=== PATIENT | female | born 1935 | race Caucasian/White ===

== ENCOUNTER 2019-12-19 16:50 | Inpatient (IN) ==
[2019-12-19 18:17] LABS: POC Blood Urea Nitrogen 63 mg/dl (8-23); POC CO2 21 mmol/L (22-30); POC Calcium, Ionized 1.21 mmol/L (1.16-1.32); POC Chloride 108 mmol/L (96-108); POC Creatinine 4.6 mg/dl (0.6-1.1); POC Glucose, Random 91 mg/dL (70-105); POC Potassium 5.5 mmol/L (3.3-5.1); POC Sodium 137 mmol/L (133-145)
[2019-12-19 18:41] LABS: Basophils # (Auto) 0.07 K/mcL (0.00-0.30); Basophils % (Auto) 0.3 % (0.0-2.0); Eosinophils % (Auto) 0.5 % (0.0-7.0); Granulocytes % (Auto) 81.4 % (38.0-78.0); Hemoglobin 11.4 g/dL (11.2-15.7); Lymphocytes % (Auto) 10.4 % (15.5-49.0); Mean Cell Volume 97.6 fL (80.0-100.0); Mean Corpuscular HGB Conc 31.7 g/dL (31.0-36.0); Mean Platelet Volume 10.2 fL (7.4-10.4); Monocytes # (Auto) 1.49 K/mcL (0.10-0.90); Monocytes % (Auto) 7.4 % (1.0-12.0); Platelet Count 477 K/mcL (140-440); RBC 3.69 M/mcL (3.59-5.38); Red Cell Distribution Width 14.2 % (11.5-14.5); WBC 20.2 K/mcL (4.50-11.00)
[2019-12-19 18:59] LABS: ALT/SGPT 15 U/l (0-40); AST/SGOT 14 U/l (0-37); Albumin 3.4 gm/dL (3.2-5.2); Alkaline Phosphatase 75 U/L (39-117); Bilirubin,Total 0.2 mg/dL (0.0-1.0); Blood Urea Nitrogen 67 mg/dl (8-23); Calcium 9.8 mg/dl (8.6-10.4); Carbon Dioxide 20 mmol/L (22-30); Chloride 101 mmol/L (96-108); Globulin 3.4 gm/dL (2.2-3.7); Glomerular Filtration Rate 8; Glucose 96 mg/dL (70-105)
--- NOTE | 2019-12-19 19:07 | Ultrasound Report ---
INDICATION: elevated creatinine TECHNIQUE: Grayscale and color flow Doppler spectral imaging COMPARISON: Previous examination dated 02/01/2015 FINDINGS: Previous right nephrectomy. Left kidney measures 13.4 x 6.6 x 3.8 cm. No solid left renal mass. There is a left upper pole cyst which measures 2.9 cm. There is mild left hydronephrosis. Left renal cortex is slightly echogenic consistent with medical renal disease. Bladder volume measures 79 mL. Left ureteral jet is not identified. IMPRESSION: 1. Previous right nephrectomy 2. Mild left hydronephrosis. Slightly echogenic left renal cortex consistent with medical renal disease. Interpreted and Authenticated by: Jose Antonio Proctor 12/19/19
[2019-12-19] MEDS ORDERED: 0.9 % SODIUM CHLORIDE 1,000 ML IV ONE (19:10)
--- NOTE | 2019-12-19 19:12 | Emergency Department Note ---
HPI General Chief complaint: Recheck/Abnormal Lab/Rx Stated complaint: recheck labs Time Seen by Provider: 12/19/19 17:02 Source: patient Mode of arrival: ambulatory Limitations: no limitations History of Present Illness HPI Narrative: Narrative: 84-year-old female presents stating that her doctor's office told her to come here due to critical lab values. States she is not sure what they were but they have been monitoring her kidney function. States she does have kidney disease and they have told her at some point soon she is going to need dialysis. States she had routine labs drawn today to monitor her kidney function and they called her couple hours later and told her to come to the ER immediately. States she does not understand it because she feels fine. She has no abdominal pain or back pain. No pain anywhere. No fever or chills. No nausea, vomiting, or diarrhea. No cough or cold symptoms. States she feels great. States she does only have 1 kidney on the left. No difficulty urinating and states actually she has been urinating a lot. No dysuria or frequency. Related Data Home Medications Medication Instructions Recorded Confirmed lovastatin 20 mg PO HS 01/30/15 12/19/19 magnesium 250 mg PO DAILY 01/30/15 12/19/19 calcitriol 0.25 mcg capsule 0.25 mcg PO Q OTHER DAY cap 05/12/19 12/19/19 losartan 100 mg tablet 100 mg PO QDAY #90 tab 05/12/19 12/19/19 Previous Rx's Medication Instructions Recorded atenolol 25 mg tablet See Rx Instructions .ROUTE 06/21/19 .COMPLEX #30 tab levothyroxine 88 mcg capsule 88 mcg PO QDAY #90 cap 09/21/19 amlodipine 5 mg tablet 7.5 mg PO QDAY #56 tab 12/05/19 Allergies Allergy/AdvReac Type Severity Reaction Status Date / Time No Known Drug Allergies Allergy Verified 12/19/19 16:53 Review of Systems ROS ROS Narrative: Narrative: All systems ED: reviewed and negative except as stated. PFSH Narrative Patient History Narrative: Narrative: Medical/Surgical/Family History All Active Problems (Updated 12/19/19 @ 20:19 by ROLAN Diaz) Acute on chronic kidney failure (Acute) Elevated WBC count (Acute) Chronic kidney disease (CKD) stage G4/A3, severely decreased glomerular filtration rate (GFR) between 15-29 mL/min/1.73 square meter and albuminuria creatinine ratio greater than 300 mg/g (Chronic) Elevated C-reactive protein (CRP) (Chronic) Nondependent tobacco use disorder (Chronic) Vitamin D deficiency, unspecified (Chronic) Essential hypertension (Chronic) Hyperparathyroidism due to renal insufficiency (Chronic) Secondary hyperparathyroidism of renal origin (Chronic) Hypertensive renal disease (Chronic) Chronic kidney disease, stage IV (severe) (Chronic) Long-term current use of steroids (Chronic) Chronic Kidney Disease (Chronic) Cystocele (Chronic) History of cholecystectomy (Chronic) History of hysterectomy (Chronic) S/p nephrectomy (Chronic) Elevated erythrocyte sedimentation rate (Chronic) Tobacco abuse (Chronic) Migraines (Chronic) Retroperitoneal infection (Chronic) Osteopenia (Chronic) Hyperlipidemia (Chronic) Hypothyroidism (Chronic) Hypertensive crisis (Chronic) Hypertensive urgency (Chronic) Chronic kidney disease, stage III (moderate) (Chronic) Medical History Chronic Kidney Disease (Chronic) Chronic kidney disease, stage III (moderate) (Chronic) Her GFR is stable and is reduced primarily from the loss of renal masses she has no right kidney. She has a bland urinalysis and her blood pressure is acceptably controlled running systolics around 140 Chronic kidney disease, stage IV (severe) (Chronic) Cystocele (Chronic) Elevated C-reactive protein (CRP) (Chronic) Elevated erythrocyte sedimentation rate (Chronic) Essential hypertension (Chronic) Unspecified, requiring 4 rx for control Giant cell arteritis (Suspected) Hyperlipidemia (Chronic) Hyperparathyroidism due to renal insufficiency (Chronic) On clacitriol Hypertensive crisis (Chronic) Hypertensive renal disease (Chronic) BP at goal, pt is bradycardic ct amlodipine cut back on atenolol to 25mg po daily stop by in a week for BP check imp to follow low sodium diet cut back on smoking work on weight loss Hypertensive urgency (Chronic) Hypothyroidism (Chronic) Long-term current use of steroids (Chronic) Migraines (Chronic) Nondependent tobacco use disorder (Chronic) Osteopenia (Chronic) 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 hyperparathyroidism of renal origin (Chronic) PTH elevated to 184 down from 227 calcium is at 10, vitamin d is 51 will monitor, given calcium level will hold off on calcitriol and start at very low dose if no further hypercalcemia will also reduce fosamax to 35mg po daily given her current renal function Tobacco abuse (Chronic) Vitamin D deficiency, unspecified (Chronic) Surgical History History of cholecystectomy (Chronic) History of hysterectomy (Chronic) History of right nephrectomy (Chronic ~1994) Social History Smoking Status: Current every day smoker Alcohol Intake Frequency: does not drink Substance Use: does not use Exam Narrative Narrative: Narrative: General Limitations: no limitations General appearance: alert and in no apparent distress Head Head: atraumatic and normocephalic Eye Eye: Present normal appearance; Absent conjunctival injection ENT ENT: Present normal exam, normal oropharynx, mucous membranes moist, TM's normal bilaterally and normal external ear exam Neck Neck: Present normal inspection and trachea midline Chest Chest: Present normal inspection and symmetric chest wall rise Respiratory Respiratory: Present normal lung sounds bilaterally; Absent respiratory distress, rales/crackles, wheezes and stridor Cardiovascular Cardiovascular: Present regular rate and normal rhythm Adbominal Abdominal: Present soft; Absent distention and tenderness Back Back: Absent CVA tenderness (R) and CVA tenderness (L) Neurological Neurological: Present alert and oriented X3 Psychiatric Psychiatric: Present normal affect and normal mood Skin Skin: Present warm, dry, intact and normal color Course Vital Signs Vital signs: Vital Signs Temperature 97.7 F 12/19/19 16:50 Pulse Rate 63 12/19/19 16:50 Respiratory Rate 18 12/19/19 16:50 Blood Pressure 108/75 12/19/19 16:50 Pulse Oximetry (%) 96 12/19/19 16:50 Temperature 97.7 F 12/19/19 16:50 Pulse Rate 63 12/19/19 16:50 Respiratory Rate 18 12/19/19 16:50 Blood Pressure 108/75 12/19/19 16:50 Pulse Oximetry (%) 96 12/19/19 16:50 [facility] MDM Narrative Medical decision making narrative: Narrative: Labs received from [facility] today show a creatinine of 4.6. Baseline she is normally 2.0-2.2. This is a significant change in her creatinine. Repeat labs here today show a creatinine of 4.9. She also has an elevated white blood cell count of 20. At 1920 I do have a call into Dr. Alexis who is on for nephrology. At 1999, Dr. Alexis agrees to accept this patient for consult. She would like the hospitalist to admit. At 2014, Dr. Bell, hospitalist agrees accept this patient. Lab Data Lab results reviewed: Yes I reviewed the patient's lab results. Result diagrams: 12/19/19 18:08 12/19/19 18:08 Labs: Lab Results 12/19/19 12/19/19 Range/Units 18:08 18:08 WBC 20.2 H (4.50-11.00) K/mcL RBC 3.69 (3.59-5.38) M/mcL Hgb 11.4 (11.2-15.7) g/dL Hct 36.0 (34.1-44.9) % POC Hct 35.0 L (36.0-48.0) % MCV 97.6 (80.0-100.0) fL MCH 30.9 (26.0-34.0) pg MCHC 31.7 (31.0-36.0) g/dL RDW 14.2 (11.5-14.5) % Plt Count 477 H (140-440) K/mcL MPV 10.2 (7.4-10.4) fL Gran % 81.4 H (38.0-78.0) % Lymph % (Auto) 10.4 L (15.5-49.0) % Island % (Auto) 7.4 (1.0-12.0) % Eos % (Auto) 0.5 (0.0-7.0) % Baso % (Auto) 0.3 (0.0-2.0) % Gran # 16.47 H (1.80-8.00) K/mcL Lymph # (Auto) 2.10 (1.50-4.80) K/mcL Island # (Auto) 1.49 H (0.10-0.90) K/mcL Eos # (Auto) 0.10 (0.00-0.70) K/mcL Baso # (Auto) 0.07 (0.00-0.30) K/mcL POC Sodium 137 (133-145) mmol/L Sodium 137 (133-145) mmol/L POC Potassium 5.5 H (3.3-5.1) mmol/L Potassium 5.5 H (3.3-5.1) mmol/L POC Chloride 108 (96-108) mmol/L Chloride 101 (96-108) mmol/L Carbon Dioxide 20 L (22-30) mmol/L POC Total CO2 21 L (22-30) mmol/L Anion Gap 16.0 (8-16) POC BUN 63 H (8-23) mg/dl BUN 67 H (8-23) mg/dl Creatinine 4.9 H (0.6-1.1) mg/dl POC Creatinine 4.6 H (0.6-1.1) mg/dl GFR Calculation 8 Glucose 96 (70-105) mg/dL POC Glucose 91 (70-105) mg/dL Calcium 9.8 (8.6-10.4) mg/dl POC WB Ioniz Calcium 1.21 (1.16-1.32) mmol/L Total Bilirubin 0.2 (0.0-1.0) mg/dL AST 14 (0-37) U/l ALT 15 (0-40) U/l Alkaline Phosphatase 75 (39-117) U/L Total Protein 6.8 (5.9-8.4) gm/dL Albumin 3.4 (3.2-5.2) gm/dL Globulin 3.4 (2.2-3.7) gm/dL Albumin/Globulin Ratio 1.0 (1.0-2.3) Radiology Data Radiology results reviewed: Yes I reviewed the patient's radiology results. Discharge Plan Patient/Caregiver Discharge Instructions Pt seen by MORTGAGE ACCOUNTING CLERK/PA only: Yes Clinical Impression: Chronic kidney disease (CKD) stage G4/A3, severely decreased glomerular filtration rate (GFR) between 15-29 mL/min/1.73 square meter and albuminuria creatinine ratio greater than 300 mg/g, Acute on chronic kidney failure, Elevated WBC count Patient Disposition: Xfer As Outpt/Obs ([facility]) Condition: Fair Follow up with: Joel Ortega DO [Primary Care Provider] - Mallory Bonilla MD [Physician] - Prescriptions: No Action atenolol 25 mg tablet See Rx Instructions .ROUTE .COMPLEX Qty: 30 RF: 6 amlodipine 5 mg tablet 7.5 mg PO QDAY Qty: 56 RF: 4 losartan 100 mg tablet 100 mg PO QDAY Qty: 90 RF: 0 calcitriol 0.25 mcg capsule 0.25 mcg PO Q OTHER DAY RF: 0 levothyroxine 88 mcg capsule 88 mcg PO QDAY Qty: 90 RF: 0 magnesium 250 MG tablet 250 mg PO DAILY RF: 0 lovastatin 20 MG tablet 20 mg PO HS RF: 0
--- NOTE | 2019-12-19 20:22 | XRay Report ---
INDICATION: wbc 20, weakness TECHNIQUE: AP portable upright chest x-ray COMPARISON: Previous chest x-rays dated 01/30/2015, 11/11/2011 FINDINGS: Lungs:Linear density at the right lung base consistent with chronic scarring. No acute parenchymal infiltrate or mass Heart, vascular:No significant cardiomegaly. Pulmonary vascularity is normal. No pulmonary edema or pulmonary congestion Mediastinum, klaudia:No mediastinal widening. No hilar mass Pleura:No pleural fluid. No pleural-based mass or calcification Skeletal:Negative. IMPRESSION: 1. Right basilar parenchymal density consistent with scarring 2. No acute abnormality or interval change Interpreted and Authenticated by: Jose Antonio Proctor 12/19/19
[2019-12-19] MEDS ORDERED: SIMVASTATIN 10 MG TABLET PO SCH (21:00)
[2019-12-19] MEDS ORDERED: LOVASTATIN 20 MG TABLET PO SCH (21:30)
--- NOTE | 2019-12-19 21:38 | Internal Med History&Physical ---
HPI History of Present Illness Patient information: Note initiated : 12/19/19 at 9:23 pm Service Date, if different from initiated Date: [] Patient: Justine Malone a 84 y/o F admitted on for recheck labs. Chief Complaint: Abnormal labs History of present illness: Ms. Malone is a 84 year old F with a history of hypertension, chronic kidney disease with single kidney, hypothyroidism, hyperlipidemia who was called in after routine labs drawn for an upcoming nephrology clinic visit revealed significantly worsened creatinine, hyperkalemia as well as leukocytosis. The patient's creatinine this year is run in the 2.02.2 range. Here in the ED, her creatinine is 4.9. In addition her white count earlier today was 16,000, and is now 20,000. The patient states that she feels well. She has had a normal appetite, is maintaining hydration. She has seen a dietitian is attempting to alter her diet to help prevent worsening of her renal function, but is still maintaining good fluid intake. She does note over the last week that she has felt thirstier than usual and has increased her water intake. She has had no nausea or vomiting, no diarrhea. She is still producing urine without dysuria. She has had no frequency. Noted no hematuria. She has had no change in her medications. She does take losartan as part of her usual antihypertensive regimen. She has not taken any nonsteroidals, the only medication she is taken for pain has been acetaminophen in the last few weeks. She does not usually take her blood pressure, though it is generally controlled in the [id number] systolic range. She has not taken any [id number] supplements or herbal preparations. She has not done any "cleanses". She denies any fevers, chills or shaking chills. She has had no cough or sputum production. Noted no rashes. No joint swelling or erythema. She has had no sinus pressure, no sore throat. She has chronic mild rhinitis which is unchanged. No vision changes. She has had no chest pain or tightness or squeezing. No lower extremity edema or orthopnea. She sleeps on 1 pillow which is unchanged. No bleeding or bruising. Patient is being admitted for further evaluation of acute on chronic renal failure as well as leukocytosis. Review of Systems All systems: reviewed and no additional remarkable complaints except as stated PFSH PFSH All Active Problems (Updated 12/19/19 @ 21:35 by Elizabeth Dao MD) Acute on chronic kidney failure (Acute) Elevated WBC count (Acute) Chronic kidney disease (CKD) stage G4/A3, severely decreased glomerular filtration rate (GFR) between 15-29 mL/min/1.73 square meter and albuminuria creatinine ratio greater than 300 mg/g (Chronic) Elevated C-reactive protein (CRP) (Chronic) Nondependent tobacco use disorder (Chronic) Vitamin D deficiency, unspecified (Chronic) Essential hypertension (Chronic) Hyperparathyroidism due to renal insufficiency (Chronic) Secondary hyperparathyroidism of renal origin (Chronic) Hypertensive renal disease (Chronic) Chronic kidney disease, stage IV (severe) (Chronic) Long-term current use of steroids (Chronic) Chronic Kidney Disease (Chronic) Cystocele (Chronic) History of cholecystectomy (Chronic) History of hysterectomy (Chronic) S/p nephrectomy (Chronic) Elevated erythrocyte sedimentation rate (Chronic) Tobacco abuse (Chronic) Migraines (Chronic) Retroperitoneal infection (Chronic) Osteopenia (Chronic) Hyperlipidemia (Chronic) Hypothyroidism (Chronic) Hypertensive crisis (Chronic) Hypertensive urgency (Chronic) Chronic kidney disease, stage III (moderate) (Chronic) Medical History Chronic Kidney Disease (Chronic) Chronic kidney disease, stage III (moderate) (Chronic) Her GFR is stable and is reduced primarily from the loss of renal masses she has no right kidney. She has a bland urinalysis and her blood pressure is acceptably controlled running systolics around 140 Chronic kidney disease, stage IV (severe) (Chronic) Cystocele (Chronic) Elevated C-reactive protein (CRP) (Chronic) Elevated erythrocyte sedimentation rate (Chronic) Essential hypertension (Chronic) Unspecified, requiring 4 rx for control Giant cell arteritis (Suspected) Hyperlipidemia (Chronic) Hyperparathyroidism due to renal insufficiency (Chronic) On clacitriol Hypertensive crisis (Chronic) Hypertensive renal disease (Chronic) BP at goal, pt is bradycardic ct amlodipine cut back on atenolol to 25mg po daily stop by in a week for BP check imp to follow low sodium diet cut back on smoking work on weight loss Hypertensive urgency (Chronic) Hypothyroidism (Chronic) Long-term current use of steroids (Chronic) Migraines (Chronic) Nondependent tobacco use disorder (Chronic) Osteopenia (Chronic) 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 hyperparathyroidism of renal origin (Chronic) PTH elevated to 184 down from 227 calcium is at 10, vitamin d is 51 will monitor, given calcium level will hold off on calcitriol and start at very low dose if no further hypercalcemia will also reduce fosamax to 35mg po daily given her current renal function Tobacco abuse (Chronic) Vitamin D deficiency, unspecified (Chronic) Surgical History History of cholecystectomy (Chronic) History of hysterectomy (Chronic) History of right nephrectomy (Chronic ~1994) Family History (Updated 12/19/19 @ 21:31 by Elizabeth Dao MD) Son Hypertension Social History (Updated 09/22/19 @ 17:01 by Mallory Bonilla MD) household members: alone housing: house lives independently: Yes marital status: single pets and animals: Yes pets and animals: dog(s) smoking status: Current every day smoker tobacco type: cigarettes alcohol intake frequency: does not drink substance use type: does not use MEDS/ALLERGIES Home Medications and Allergies Home Medications Medication Instructions Recorded Confirmed Type lovastatin 20 mg PO HS 01/30/15 12/19/19 History magnesium 250 mg PO DAILY 01/30/15 12/19/19 History calcitriol 0.25 mcg capsule 0.25 mcg PO Q OTHER DAY cap 05/12/19 12/19/19 History losartan 100 mg tablet 100 mg PO QDAY #90 tab 05/12/19 12/19/19 History atenolol 25 mg tablet See Rx Instructions .ROUTE 06/21/19 12/19/19 Rx .COMPLEX #30 tab levothyroxine 88 mcg capsule 88 mcg PO QDAY #90 cap 09/21/19 12/19/19 Rx amlodipine 5 mg tablet 7.5 mg PO QDAY #56 tab 12/05/19 12/19/19 Rx Allergies Allergy/AdvReac Type Severity Reaction Status Date / Time No Known Drug Allergies Allergy Verified 12/19/19 16:53 EXAM Constitutional Vitals: Temp Pulse Resp BP Pulse Ox 97.7 F 60 18 143/75 96 12/19/19 16:50 12/19/19 21:08 12/19/19 16:50 12/19/19 21:08 12/19/19 21:08 GENERAL: Alert, oriented, in no acute distress. Cooperative, appears stated age. HEENT: Atraumatic. PERRL, conjunctiva clear, no scleral icterus. Hearing grossly intact. Oropharynx with moist mucous membranes, tongue midline, palate rises symmetrically. NECK: Supple without meningismus, no thyromegaly appreciated though exam is difficult RESPIRATORY: Coarse crackles in the right base, unchanged with deep respir ations. Otherwise no rales, respirations are unlabored. No wheezing, no rhonchi. CARDIOVASCULAR: Regular rate and rhythm, no murmur gallop or rub. No peripheral edema. Carotid pulses 2+ without bruit. Dorsalis pedis pulses 2+. GI: Abdomen obese, soft, nontender, no guarding or rebound. Bowel sounds are present. MUSCULOSKELETAL: No joint erythema or swelling, normal range of motion in all extremities. SKIN: Intact, warm, dry. Multiple actinic keratoses on the back. Skin turgor normal. NEUROLOGIC: Cranial nerves II through XII grossly intact. Muscle mass normal for age. Strength 5/5 in the upper and lower extremities. Sensation intact to light touch bilaterally. PSYCHIATRIC: Alert, oriented x3, normal mood and affect, normal insight. DATA Data Completed and Pending Labs on day of discharge: Labs from last 24 hours 12/19/19 12/19/19 12/19/19 20:42 20:05 18:08 WBC RBC Hgb Hct POC Hct 35.0 L MCV MCH MCHC RDW Plt Count MPV Gran % Lymph % (Auto) Dare % (Auto) Eos % (Auto) Baso % (Auto) Gran # Lymph # (Auto) Dare # (Auto) Eos # (Auto) Baso # (Auto) VBG Lactic Acid 0.8 POC Sodium 137 Sodium 137 POC Potassium 5.5 H Potassium 5.5 H POC Chloride 108 Chloride 101 Carbon Dioxide 20 L POC Total CO2 21 L Anion Gap 16.0 POC BUN 63 H BUN 67 H Creatinine 4.9 H POC Creatinine 4.6 H GFR Calculation 8 Glucose 96 POC Glucose 91 Calcium 9.8 POC WB Ioniz Calcium 1.21 Total Bilirubin 0.2 AST 14 ALT 15 Alkaline Phosphatase 75 Total Protein 6.8 Albumin 3.4 Globulin 3.4 Albumin/Globulin Ratio 1.0 Urine Color Pending Urine Appearance Pending Urine pH Pending Ur Specific [place] Pending Urine Protein Pending Urine Glucose (UA) Pending Urine Ketones Pending Urine Occult Blood Pending Urine Nitrate Pending Urine Bilirubin Pending Urine Urobilinogen Pending Ur Leukocyte Esterase Pending 12/19/19 18:08 WBC 20.2 H RBC 3.69 Hgb 11.4 Hct 36.0 POC Hct MCV 97.6 MCH 30.9 MCHC 31.7 RDW 14.2 Plt Count 477 H MPV 10.2 Gran % 81.4 H Lymph % (Auto) 10.4 L Dare % (Auto) 7.4 Eos % (Auto) 0.5 Baso % (Auto) 0.3 Gran # 16.47 H Lymph # (Auto) 2.10 Dare # (Auto) 1.49 H Eos # (Auto) 0.10 Baso # (Auto) 0.07 VBG Lactic Acid POC Sodium Sodium POC Potassium Potassium POC Chloride Chloride Carbon Dioxide POC Total CO2 Anion Gap POC BUN BUN Creatinine POC Creatinine GFR Calculation Glucose POC Glucose Calcium POC WB Ioniz Calcium Total Bilirubin AST ALT Alkaline Phosphatase Total Protein Albumin Globulin Albumin/Globulin Ratio Urine Color Urine Appearance Urine pH Ur Specific [place] Urine Protein Urine Glucose (UA) Urine Ketones Urine Occult Blood Urine Nitrate Urine Bilirubin Urine Urobilinogen Ur Leukocyte Esterase Impressions Impressions: EKG: Sinus rhythm. Normal intervals. Imaging and Cardiology Chest x-ray: Status: image reviewed by me Additional comments: No pulmonary edema, right basilar scarring. A/P Assessment and plan (1) Acute on chronic kidney failure: Status: Acute (2) Elevated WBC count: Status: Acute (3) Chronic kidney disease (CKD) stage G4/A3, severely decreased glomerular filtration rate (GFR) between 15-29 mL/min/1.73 square meter and albuminuria creatinine ratio greater than 300 mg/g: Status: Chronic (4) Essential hypertension: Status: Chronic Comment: Unspecified, requiring 4 rx for control (5) Hyperparathyroidism due to renal insufficiency: Status: Chronic Comment: On clacitriol Narrative A/P Narrative: 84-year-old female with chronic kidney disease presenting with acute on chronic renal failure associated with hyperkalemia. Also found to have leukocytosis. Acute on chronic renal failure. Creatinine running at baseline in the 2.02.2 range. Is now 4.9. Unclear etiology. Ultrasound of the kidneys reveal evidence of medical renal disease, mild hydro-but no obstruction, no inflammatory stranding. Patient does not provide history of volume loss without nausea or vomiting, is maintaining good oral intake. Has not been out in the heat for prolonged periods of time. She does not take diuretics. No nonsteroidal use. She is chronically on losartan which is unchanged, but could have contributed. She has not checked her blood pressure at home, but no other symptoms of hypertensive urgency and she is generally controlled in the 140-150 mmHg systolic range. Given her leukocytosis, sepsis also a concern is because of renal failure, however history and physical exam is generally unrevealing; urine analysis shows pyuria but no bacteriuria, culture has been sent. She is nonoliguric, continuing to make urine. Plan: Inpatient admission Hydrate Follow urine output Follow renal function Nephrology consultation (called from the ED), case discussed with Dr. Bonilla on the phone Follow-up urine culture, begin antibiotics with ceftriaxone Check spot urine sodium and creatinine/fractional excretion of sodium Hyperkalemia. Mild, likely on the basis of renal insufficiency. No concerning EKG changes. Follow electrolytes with hydration Leukocytosis. White count was 16,000 this afternoon, 20,000 this evening. No focal source on physical exam, no concerning symptoms on history. Mostly granulocytes, manual differential apparently showed bands, no mention of blasts or other immature lineages. Concerning for possible infection. As noted, no apparent source. Urine analysis shows pyuria without squamous cells, but no bacteriuria on microscopy, does not seem to be a significant infection that would explain such a leukocytosis. Follow-up urine culture Begin antibiotics as above Follow-up blood cultures obtained in the ED Check procalcitonin Hypertension. On losartan, atenolol and amlodipine as an outpatient. By her report, systolics generally run in the 140-150 mmHg range. Continue amlodipine and atenolol Hold losartan given renal failure Hypothyroidism. On levothyroxine. Check TSH Hyperlipidemia. On lovastatin. Continue Prophylaxis: Subcutaneous unfractionated heparin CODE STATUS discussed with patient and her daughter: Full code
[2019-12-19 21:42] LABS: Appearance,Urine CLEAR; Bacteria,Urine 0 /hpf (0); Bilirubin,Urine NEG (NEG); Color,Urine STRAW; Culture Indicated,Urine YES; Glucose,Urine (UA) NEGATIVE (NEG); Ketones,Urine NEG (NEG); Leukocyte Esterase,Urine 75 /uL (NEG); Mucus,Urine FEW /hpf (0); Nitrate,Urine NEG (NEG); Protein,Urine 100 mg/dL (NEG); Specific Gravity,Urine 1.011 (1.000-1.035); Urine Blood 0.03 mg/dL (<0.03); Urine RBC 2 /hpf (0-1); Urine Squamous Epithelial Cell < 1 /hpf (0-4); Urine WBC 37 /hpf (0-4); Urobilinogen,Urine NEG (NEG)
--- NOTE | 2019-12-19 21:53 | Nephrology Consult Note ---
HPI Data of Consult Consult date: 12/20/19 Primary Care Provider: Joel Ortega Consult Narrative Reason for consult: Decreased renal function History of present illness: 84-year-old female with CKD stage IV, solitary kidney, hypothyroidism, HTN, dyslipidemia, sent to the ED for evaluation of decreased renal function after routine blood work. She was asymptomatic. She received IV fluids overnight, and continues to deny: Nausea, vomiting, changes in appetite, pruritus, edema, hiccups etc. denies recent NSAID use. Says she stayed better hydrated cc:: CC: Review of Systems Review of systems: 10 point review of system negative PFSH PFSH All Active Problems Acute on chronic kidney failure (Acute) Elevated WBC count (Acute) Chronic kidney disease (CKD) stage G4/A3, severely decreased glomerular fi ltration rate (GFR) between 15-29 mL/min/1.73 square meter and albuminuria creatinine ratio greater than 300 mg/g (Chronic) Elevated C-reactive protein (CRP) (Chronic) Nondependent tobacco use disorder (Chronic) Vitamin D deficiency, unspecified (Chronic) Essential hypertension (Chronic) Hyperparathyroidism due to renal insufficiency (Chronic) Secondary hyperparathyroidism of renal origin (Chronic) Hypertensive renal disease (Chronic) Chronic kidney disease, stage IV (severe) (Chronic) Long-term current use of steroids (Chronic) Chronic Kidney Disease (Chronic) Cystocele (Chronic) History of cholecystectomy (Chronic) History of hysterectomy (Chronic) S/p nephrectomy (Chronic) Elevated erythrocyte sedimentation rate (Chronic) Tobacco abuse (Chronic) Migraines (Chronic) Retroperitoneal infection (Chronic) Osteopenia (Chronic) Hyperlipidemia (Chronic) Hypothyroidism (Chronic) Hypertensive crisis (Chronic) Hypertensive urgency (Chronic) Chronic kidney disease, stage III (moderate) (Chronic) Medical History Chronic Kidney Disease (Chronic) Chronic kidney disease, stage III (moderate) (Chronic) Her GFR is stable and is reduced primarily from the loss of renal masses she has no right kidney. She has a bland urinalysis and her blood pressure is acceptably controlled running systolics around 140 Chronic kidney disease, stage IV (severe) (Chronic) Cystocele (Chronic) Elevated C-reactive protein (CRP) (Chronic) Elevated erythrocyte sedimentation rate (Chronic) Essential hypertension (Chronic) Unspecified, requiring 4 rx for control Giant cell arteritis (Suspected) Hyperlipidemia (Chronic) Hyperparathyroidism due to renal insufficiency (Chronic) On clacitriol Hypertensive crisis (Chronic) Hypertensive renal disease (Chronic) BP at goal, pt is bradycardic ct amlodipine cut back on atenolol to 25mg po daily stop by in a week for BP check imp to follow low sodium diet cut back on smoking work on weight loss Hypertensive urgency (Chronic) Hypothyroidism (Chronic) Long-term current use of steroids (Chronic) Migraines (Chronic) Nondependent tobacco use disorder (Chronic) Osteopenia (Chronic) 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 hyperparathyroidism of renal origin (Chronic) PTH elevated to 184 down from 227 calcium is at 10, vitamin d is 51 will monitor, given calcium level will hold off on calcitriol and start at ve ry low dose if no further hypercalcemia will also reduce fosamax to 35mg po daily given her current renal function Tobacco abuse (Chronic) Vitamin D deficiency, unspecified (Chronic) Surgical History History of cholecystectomy (Chronic) History of hysterectomy (Chronic) History of right nephrectomy (Chronic ~1994) Family History (Updated 12/19/19 @ 21:31 by Elizabeth Dao MD) Son Hypertension Social History household members: alone housing: house lives independently: Yes marital status: single pets and animals: Yes pets and animals: dog(s) smoking status: Current every day smoker tobacco type: cigarettes alcohol intake frequency: does not drink substance use type: does not use MEDS/ALLERGIES Home Medications and Allergies Home Medications Medication Instructions Recorded Confirmed Type lovastatin 20 mg PO HS 01/30/15 12/19/19 History magnesium 250 mg PO HS 01/30/15 12/19/19 History calcitriol 0.25 mcg capsule 0.25 mcg PO Q OTHER DAY cap 05/12/19 12/19/19 History losartan 100 mg tablet 100 mg PO HS #90 tab 05/12/19 12/19/19 History atenolol 25 mg tablet See Rx Instructions .ROUTE 06/21/19 12/19/19 Rx .COMPLEX #30 tab levothyroxine 88 mcg capsule 88 mcg PO QDAY #90 cap 09/21/19 12/19/19 Rx amlodipine 5 mg tablet 7.5 mg PO QDAY #56 tab 12/05/19 12/19/19 Rx Allergies Allergy/AdvReac Type Severity Reaction Status Date / Time No Known Drug Allergies Allergy Verified 12/19/19 16:53 Physical Examination Vital Signs Vital signs: Temp Pulse Resp BP Pulse Ox 36.5 C 60 18 143/75 96 12/19/19 16:50 12/19/19 21:08 12/19/19 16:50 12/19/19 21:08 12/19/19 21:08 General Appearance Exam Narrative: General elderly lady, no acute distress HEENT head is normocephalic, atraumatic. Eyes nonicteric sclera Respiratory nonlabored respirations, on room air, no adventitious sounds Cardiovascular regular rate and rhythm, no rub, present peripheral pulses Abdomen soft, distended, nontender, present bowel sounds Skin warm and dry Extremities no cyanosis, no edema Neuro alert, oriented, clear speech, moves all extremities Results Lab Results Result Diagrams: 12/20/19 05:10 12/20/19 05:10 Lab results: Most recent lab results Calcium 9.8 mg/dl (8.6-10.4) 12/19/19 18:08 A/P Assessment and plan (1) Acute on chronic kidney failure: Status: Acute (2) Chronic kidney disease (CKD) stage G4/A3, severely decreased glomerular filtration rate (GFR) between 15-29 mL/min/1.73 square meter and albuminuria creatinine ratio greater than 300 mg/g: Status: Chronic (3) Elevated WBC count: Status: Acute Narrative A/P Narrative: per 12/19/2019 review of chart JOSELO on CKD vs progression of CKD to ESRD no need for emergent dilaysis 12/20/2019 strict I/O; hold losartan. avoid nephrotoxins gentle fluid administration e.g 1ml/kg/hr 12/20/2019am renal function panel. further management based on repeat labs 12/20/2019 assessment and plan She had severe CKD in the setting of solitary kidney, hypertension. Renal function has worsened, she has no uremic symptoms. Has follow-up in renal clinic this week 12/19/2019 UA plus protein, 37 WBC, 2 RBC. UPCR 2.3 05/06/2019. UPCR was 2.6 07/22/2018. UA with microscopy dipstick was positive for blood, positive for protein, 0-2 red blood cells, 0.2 hyaline casts. Prior negative work-up includes REJI, ANCA screen, SSA, SSB, anti-Salmeron, anti- [employer]CROPHONE OPERATOR, anti-scleroderma, double-stranded DNA, normal C3, negative hepatitis B antigen and antibody, nonreactive hepatitis C antibody. Her C3 was minimally decreased 15.3 (16-47) 12/19/2019 renal ultrasound1. Previous right nephrectomy 2. Mild left hydronephrosis. Slightly echogenic left renal cortex consistent with medical renal disease. Renal ultrasound 01/31/2015 read as left kidney 11.2 cm. 1.3 cm cyst. Prior right nephrectomy. Normal left artery no detectable stenosis. labs reviewed with the patient. patient updated with findings and plan, voiced understanding Arrangements will be made for access placement hemodynamics and volume Albumin 2.5. Blood pressure fluctuated from 108/75-171/58. 12/19/2019 chest x-ray1. Right basilar parenchymal density consistent with sc arring 2. No acute abnormality or interval change *Change amlodipine to 5 mg p.o. twice daily. Continue atenolol. hydralazine 25 mg p.o. as needed for SBP over 150 *Monitor blood pressure at home acid-base Bicarbonate 17. *Bicarbonate 325 mg p.o. daily bone-mineral metabolism Calcium 9, magnesium 2.3, phosphorus 4.9. Monitor as below BUN/ K 61/5. *Repeat renal function panel , 12/22/2019 hematologic hemoglobin 9.9. *Iron studies, repeat H&H this week during the renal appointment on CLINICAL EXERCISE PHYSIOLOGIST Planning ESRD education: She attended the choices class. Access planning: Arrangements being made with our access director. Schedule vein mapping and vascular surgery consult Time Spent With Patient Time: Total time spent is greater than 50% in coordination of care (as compa gallegos) at patient's floor/unit and/or counseling patient:
[2019-12-19] MEDS ORDERED: ACETAMINOPHEN 325 MG TABLET PO PRN (21:56)
[2019-12-19] MEDS ORDERED: LACTULOSE 20 GM/30 ML ORAL.SOL PO PRN (21:56)
[2019-12-19] MEDS ORDERED: SENNOSIDES 1 TABLET PO PRN (21:56)
[2019-12-19] MEDS ORDERED: ONDANSETRON 4 MG/2 ML VIAL IV PRN (21:56)
[2019-12-19] MEDS: 0.9 % SODIUM CHLORIDE 1,000 ML IV SCH (22:33)
[2019-12-19] MEDS: 0.9 % SODIUM CHLORIDE 10 ML SYRINGE IV SCH (22:34)
[2019-12-19 22:36] LABS: Creatinine,Urine Random 58.3 mg/dl
[2019-12-20] MEDS: 0.9 % SODIUM CHLORIDE 10 ML SYRINGE IV SCH ×2 (05:24→15:13)
[2019-12-20 05:59] LABS: Hematocrit 32.7 % (34.1-44.9); Hemoglobin 9.9 g/dL (11.2-15.7); Mean Cell Volume 100.3 fL (80.0-100.0); Mean Corpuscular HGB Conc 30.3 g/dL (31.0-36.0); Mean Platelet Volume 10.1 fL (7.4-10.4); Platelet Count 448 K/mcL (140-440); RBC 3.26 M/mcL (3.59-5.38); Red Cell Distribution Width 14.4 % (11.5-14.5); WBC 15.3 K/mcL (4.50-11.00)
[2019-12-20 06:50] LABS: ALT/SGPT 13 U/l (0-40); AST/SGOT 12 U/l (0-37); Albumin 2.5 gm/dL (3.2-5.2); Albumin/Globulin Ratio 0.8 (1.0-2.3); Alkaline Phosphatase 58 U/L (39-117); Bilirubin,Direct < 0.2 mg/dL (0.0-0.3); Bilirubin,Total 0.2 mg/dL (0.0-1.0); Blood Urea Nitrogen 61 mg/dl (8-23); Carbon Dioxide 17 mmol/L (22-30); Globulin 3.1 gm/dL (2.2-3.7); Glomerular Filtration Rate 8; Glucose 109 mg/dL (70-105); Lactate Dehydrogenase 133 U/L (94-250); Phosphorous 4.9 mg/dL (2.7-4.5); Triglycerides 92 mg/dl (<150); Uric Acid 9.4 mg/dL (2.5-8.0)
[2019-12-20 06:51] LABS: Chloride 109 mmol/L (96-108)
[2019-12-20] MEDS ORDERED: LEVOTHYROXINE 88 MCG TABLET PO SCH ×2 (07:30)
[2019-12-20] MEDS: 0.9 % SODIUM CHLORIDE 1,000 ML IV SCH (08:56)
[2019-12-20] MEDS ORDERED: cefTRIAXone 1 GM VIAL IV SCH (09:00)
[2019-12-20] MEDS ORDERED: HEPARIN 5,000 UNIT/ML VIAL SQ SCH (09:00)
[2019-12-20] MEDS ORDERED: DOCUSATE SODIUM 100 MG CAPSULE PO SCH (09:00)
[2019-12-20] MEDS ORDERED: ATENOLOL 25 MG TABLET PO SCH ×2 (09:00)
[2019-12-20] MEDS ORDERED: amLODIPine 5 MG TABLET PO SCH ×2 (09:00)
--- NOTE | 2019-12-20 11:36 | Discharge Summary ---
Discharge Provider Provider Patient information: Note initiated : 12/20/19 at 11:33 am Service Date, if different from initiated Date: [] Patient: Justine Malone 84 y/o F admitted on 12/19/19 for recheck labs. Chief Complaint: Abnormal labs Date of admission: 12/19/19 21:55 Discharge date: 12/20/19 Primary care physician: Joel Ortega Admitting clinician: Elizabeth Dao Consults: 12/19/19 Consult to Physician [CONS] Stat Comment: Consulting Provider: Mallory Bonilla Reason For Exam: Physician to Consult Consult to Physician [CONS] Stat Comment: Consulting Provider: Elizabeth Dao Reason For Exam: Physician to Consult Discharging clinician: Elizabeth Dao Discharge Meds Discharge Medications Home Medications lovastatin 20 mg PO HS 01/30/15 [History Confirmed 12/19/19 Last Taken 12/18/19] magnesium 250 mg PO HS 01/30/15 [History Confirmed 12/19/19 Last Taken 12/18/19] calcitriol 0.25 mcg capsule 0.25 mcg PO Q OTHER DAY cap 05/12/19 [History Confirmed 12/19/19 Last Taken Unknown] atenolol 25 mg tablet See Rx Instructions .ROUTE .COMPLEX #30 tab 06/21/19 [Rx Confirmed 12/19/19 Last Taken 12/18/19] levothyroxine 88 mcg capsule 88 mcg PO QDAY #90 cap 09/21/19 [Rx Confirmed 12/19/19 Last Taken 12/18/19] amlodipine 5 mg PO BID #60 tab 12/20/19 [Rx Last Taken Unknown] hydralazine 25 mg PO QIDP PRN #30 tab 12/20/19 [Rx Last Taken Unknown] sodium bicarbonate 325 mg PO QDAY #30 tab 12/20/19 [Rx Last Taken Unknown] COURSE Hospital Course Hospital course: HPI: Ms. Malone is a 84 year old F with a history of hypertension, chronic kidney disease with single kidney, hypothyroidism, hyperlipidemia who was called in after routine labs drawn for an upcoming nephrology clinic visit revealed significantly worsened creatinine, hyperkalemia as well as leukocytosis. The patient's creatinine this year is run in the 2.02.2 range. Here in the ED, her creatinine is 4.9. In addition her white count earlier today was 16,000, and is now 20,000. The patient states that she feels well. She has had a normal appetite, is maintaining hydration. She has seen a dietitian is attempting to alter her diet to help prevent worsening of her renal function, but is still maintaining good fluid intake. She does note over the last week that she has felt thirstier than usual and has increased her water intake. She has had no nausea or vomiting, no diarrhea. She is still producing urine without dysuria. She has had no frequency. Noted no hematuria. She has had no change in her medications. She does take losartan as part of her usual antihypertensive regimen. She has not taken any nonsteroidals, the only medication she is taken for pain has been acetaminophen in the last few weeks. She does not usually take her blood pressure, though it is generally controlled in the 320361 systolic range. She has not taken any [id number] supplements or herbal preparations. She has not done any "cleanses". Course: Patient was admitted, hydrated overnight. Losartan was held. Following morning her creatinine was 4.6. Her urine analysis revealed pyuria without bact eriuria, though she was started on antibiotics for possible acute cystitis. Her white count decreased to 15,000, though with hydration her hemoglobin fell from 11.6-9.9. She was seen in consultation by Dr. Bonilla, who also follows her in the nephrology clinic. This may represent acute on chronic renal disease versus progression of CKD to ESRD. Recommendations were made for changes to blood pre ssure regimen to exclude losartan, correction of acidosis, and further evaluation of anemia. The patient felt well throughout this time. It was felt that she could now be discharged and continue hydrating at home orally with close clinic follow-up later this week. Her leukocytosis improved. Unclear if this was secondary to acute cystitis. No other source of infection noted. Procalcitonin is normal at 0.67. Blood cultures were without growth by the time of discharge. Urine culture likewise was without growth, though it was less than 24 hours by discharge. The patient was admitted as an inpatient anticipating it would require at least 2 days to stabilize and evaluate her decline in renal function. However she is being discharged in less than 2 midnights as her renal function was st abilized/started to improve and she was stable to continue hydration as an outpatient with close outpatient follow-up. Thus she was discharged after only 1 midnight in the hospital. Discharge diagnosis: Acute kidney injury on CKD 4 versus progression of CKD to ESRD Secondary discharge diagnosis: Hyperkalemia, mild, resolved Rule out urinary tract infection/acute cystitis Hypertension Hypothyroidism Hypercholesterolemia Complications: None Time Spent with Patient Time attestation: Total time spent providing and/or coordinating discharge services: 40 min EXAM Constitutional Vitals: Temp Pulse Resp BP Pulse Ox 98.5 F 56 L 20 145/60 94 12/20/19 11:30 12/20/19 11:30 12/20/19 11:30 12/20/19 11:30 12/20/19 11:30 General: No acute distress Chest: Few rales at right base, unchanged from admission Cardiovascular: Regular, no peripheral edema Abdomen: Soft, nontender Neuro: Alert, oriented x3, ambulatory Discharge Data Data Completed and Pending Labs on day of discharge: Labs from last 24 hours 12/20/19 12/20/19 12/20/19 05:10 05:10 05:10 WBC 15.3 H RBC 3.26 L Hgb 9.9 L Hct 32.7 L POC Hct MCV 100.3 H MCH 30.4 MCHC 30.3 L RDW 14.4 Plt Count 448 H MPV 10.1 Gran % Lymph % (Auto) [place] % (Auto) Eos % (Auto) Baso % (Auto) Gran # Lymph # (Auto) [place] # (Auto) Eos # (Auto) Baso # (Auto) Total Counted Pending Band Neutrophils % Not Reportable Platelet Estimate Pending RBC Morphology Pending VBG Lactic Acid POC Sodium Sodium 141 POC Potassium Potassium 5.0 POC Chloride Chloride 109 H Carbon Dioxide 17 L POC Total CO2 Anion Gap 15.0 POC BUN BUN 61 H Creatinine 4.6 H POC Creatinine GFR Calculation 8 Glucose 109 H POC Glucose Uric Acid 9.4 H Calcium 9.0 POC WB Ioniz Calcium Phosphorus 4.9 H Magnesium 2.3 Total Bilirubin 0.2 Direct Bilirubin < 0.2 GGT 17 AST 12 ALT 13 Alkaline Phosphatase 58 Lactate Dehydrogenase 133 Total Protein 5.6 L Albumin 2.5 L Globulin 3.1 Albumin/Globulin Ratio 0.8 L Triglycerides 92 Procalcitonin TSH 7.30 H Urine Color Urine Appearance Urine pH Ur Specific [place] Urine Protein Urine Glucose (UA) Urine Ketones Urine Occult Blood Urine Nitrate Urine Bilirubin Urine Urobilinogen Ur Leukocyte Esterase Urine RBC Urine WBC Ur Squamous Epith Cells Urine Bacteria Urine Mucus Ur Culture Indicated? Ur Random Creatinine Ur Random Sodium 12/19/19 12/19/19 12/19/19 20:48 20:42 20:05 WBC RBC Hgb Hct POC Hct MCV MCH MCHC RDW Plt Count MPV Gran % Lymph % (Auto) [place] % (Auto) Eos % (Auto) Baso % (Auto) Gran # Lymph # (Auto) [place] # (Auto) Eos # (Auto) Baso # (Auto) Total Counted Band Neutrophils % Platelet Estimate RBC Morphology VBG Lactic Acid 0.8 POC Sodium Sodium POC Potassium Potassium POC Chloride Chloride Carbon Dioxide POC Total CO2 Anion Gap POC BUN BUN Creatinine POC Creatinine GFR Calculation Glucose POC Glucose Uric Acid Calcium POC WB Ioniz Calcium Phosphorus Magnesium Total Bilirubin Direct Bilirubin GGT AST ALT Alkaline Phosphatase Lactate Dehydrogenase Total Protein Albumin Globulin Albumin/Globulin Ratio Triglycerides Procalcitonin TSH Urine Color Straw Urine Appearance Clear Urine pH 7.0 Ur Specific [place] 1.011 Urine Protein 100 A Urine Glucose (UA) Negative Urine Ketones Neg Urine Occult Blood 0.03 A Urine Nitrate Neg Urine Bilirubin Neg Urine Urobilinogen Neg Ur Leukocyte Esterase 75 A Urine RBC 2 H Urine WBC 37 H Ur Squamous Epith Cells < 1 Urine Bacteria 0 Urine Mucus Few Ur Culture Indicated? Yes Ur Random Creatinine 58.3 Ur Random Sodium 38 12/19/19 12/19/19 12/19/19 18:18 18:08 18:08 WBC 20.2 H RBC 3.69 Hgb 11.4 Hct 36.0 POC Hct 35.0 L MCV 97.6 MCH 30.9 MCHC 31.7 RDW 14.2 Plt Count 477 H MPV 10.2 Gran % 81.4 H Lymph % (Auto) 10.4 L [place] % (Auto) 7.4 Eos % (Auto) 0.5 Baso % (Auto) 0.3 Gran # 16.47 H Lymph # (Auto) 2.10 [place] # (Auto) 1.49 H Eos # (Auto) 0.10 Baso # (Auto) 0.07 Total Counted Band Neutrophils % Platelet Estimate RBC Morphology VBG Lactic Acid POC Sodium 137 Sodium 137 POC Potassium 5.5 H Potassium 5.5 H POC Chloride 108 Chloride 101 Carbon Dioxide 20 L POC Total CO2 21 L Anion Gap 16.0 POC BUN 63 H BUN 67 H Creatinine 4.9 H POC Creatinine 4.6 H GFR Calculation 8 Glucose 96 POC Glucose 91 Uric Acid Calcium 9.8 POC WB Ioniz Calcium 1.21 Phosphorus Magnesium Total Bilirubin 0.2 Direct Bilirubin GGT AST 14 ALT 15 Alkaline Phosphatase 75 Lactate Dehydrogenase Total Protein 6.8 Albumin 3.4 Globulin 3.4 Albumin/Globulin Ratio 1.0 Triglycerides Procalcitonin 0.67 TSH Urine Color Urine Appearance Urine pH Ur Specific [place] Urine Protein Urine Glucose (UA) Urine Ketones Urine Occult Blood Urine Nitrate Urine Bilirubin Urine Urobilinogen Ur Leukocyte Esterase Urine RBC Urine WBC Ur Squamous Epith Cells Urine Bacteria Urine Mucus Ur Culture Indicated? Ur Random Creatinine Ur Random Sodium Preliminary micro results at discharge 12/19/19 20:42 Urine Culture - Preliminary Urine - Clean Void Mid-Stream Impressions Impressions: EKG: Sinus rhythm with normal intervals, no injury pattern Imaging and Cardiology Chest x-ray: Additional comments: Scarring at the right base, no acute abnormality, no volume overload. Discharge Plan Patient/Caregiver Discharge Instructions Activity: resume usual activities as tolerated Diet: Renal Instructions: Acute Kidney Injury (GEN), Chronic Kidney Disease Diet (GEN), Hyperkalemia (GEN) Activity Restrictions/Additional Instructions: This discharge packet is provided to you to help keep you informed about your care. We want to ensure you get everything you need when you go home. You will also be receiving a call from us in a few days to follow up with you and see how you are doing since your discharge. This gives us a chance to listen to any concerns you maybe experiencing since you were discharged or any additional needs you may have, as well as providing us feedback on your care experience. We strive to always provide excellent care and thank you for your feedback and for choosing [facility]. Resume usual activities as tolerated. Continue with a renal diet. Follow up with your PCP and [employer]. Prescriptions: New sodium bicarbonate 325 mg tablet 325 mg PO QDAY Qty: 30 RF: 0 hydralazine 25 mg tablet 25 mg PO QIDP PRN (Reason: For SBP >150) Qty: 30 RF: 0 Continued atenolol 25 mg tablet See Rx Instructions .ROUTE .COMPLEX Qty: 30 RF: 6 calcitriol 0.25 mcg capsule 0.25 mcg PO Q OTHER DAY RF: 0 levothyroxine 88 mcg capsule 88 mcg PO QDAY Qty: 90 RF: 0 magnesium 250 MG tablet 250 mg PO HS RF: 0 lovastatin 20 MG tablet 20 mg PO HS RF: 0 Changed amlodipine 5 mg tablet 5 mg PO BID Qty: 60 RF: 4 Discontinued losartan 100 mg tablet 100 mg PO HS Qty: 90 RF: 0 Other Ambulatory Orders: Complete Blood Count (Routine) Timeframe: 20191222 Facility: [facility] - Location: Laboratory Ordered By: Elizabeth Dao Iron (Routine) Timeframe: 20191222 Facility: [facility] - Location: Laboratory Ordered By: Elizabeth Dao Ferritin (Routine) Timeframe: 20191222 Facility: [facility] - Location: Laboratory Ordered By: Elizabeth Dao Renal Function Panel (Routine) Timeframe: 20191222 Facility: [facility] - Location: Laboratory Ordered By: Elizabeth Dao Total Iron Binding Capacity (Routine) Timeframe: 20191222 Facility: [facility] - Location: Laboratory Ordered By: Elizabeth Dao Follow Up Plan Follow up with: Mallory Bonilla MD [Physician] - 12/22/19 (Please check in at 2:15) Joel Ortega DO [Primary Care Provider] - 12/27/19 2:20 pm (Please check in 15 min. early) Patient Disposition: Home, Self-Care Prognosis: Fair Overall status at discharge: patient is progressing back to baseline Discharge Orders: Discharge Order (Routine); Ordered 12/20/19 Ordered By: Elizabeth Dao
[2019-12-20 12:49] LABS: Band Neutrophils % 2 % (0-10); Eosinophils % (Manual) 1 % (0-7); Lymphocytes % 9 % (15-49); Macrocytosis 1+ (NONE SEEN); Monocytes % (Manual) 7 % (1-12); Platelet Estimate INCREASED (NORMAL); RBC Morphology ABNORM (NORMAL); Segmented Neutrophils % 81 % (38-78)
[2019-12-21] MEDS ORDERED: CALCITRIOL 0.25 MCG CAPSULE PO SCH ×2 (09:00)
== END 2019-12-20 16:35 | disposition home or self-care (01) | DRG 683 ==
LOC: ED 16:50 → ICU 21:55
PROVIDERS: ADMIT Internal Medicine; ATTEND Internal Medicine